=== PATIENT | male | born 1975 | race Two or more races ===

== ENCOUNTER 2017-01-16 19:48 | Emergency (ER) | payer OTHER ==
[2017-01-16] MEDS ORDERED: IBUPROFEN 600 MG TAB PO ONE (20:05)
[2017-01-16 20:06] VITALS: RESP 16
[2017-01-16] MEDS ORDERED: IBUPROFEN 200 MG TAB PO ONE (20:09)
--- NOTE | 2017-01-16 20:41 | EDPHY ---
H & P Time Seen by Provider: 01/16/17 19:59 HPI/ROS: This patient injured his right ankle sliding into 2nd base while playing softball at 6:25 p.m. the night evaluation with an inversion injury. He reports lateral more than medial pain with significant lateral swelling. Pain intensity is 5/10. His drove him here by private vehicle for evaluation. He reports inability to bear weight on the injured ankle. He applied ice but has not taken any medications. He reported noticing some crepitance with movement of the ankle after the injury. ROS: Neuro: No numbness or tingling Musculoskeletal: No other injuries from the fall. No foot pain. Cardiovascular: No pallor to the affected ankle. Integumentary: No lacerations abrasions. 5 point ROS is otherwise negative. Past Medical/Surgical History: Otherwise healthy. He does not recall any prior right ankle injury. Smoking Status: Never smoked Physical Exam: Physical Exam Vital signs are normal. General: No acute distress HEENT: Atraumatic. Eyes: Pupils equal and react to light. Extraocular motions are intact. Lungs: No respiratory distress. Cardiac: Brisk capillary refill is intact throughout. Pulses are 2+ and symmetric in the affected extremity. Extremities: Atraumatic normal except for right ankle Right ankle: Patient has significant lateral swelling on the malleolus with associated tenderness. He also has mild tenderness to the inferior aspect of the medial malleolus with minimal swelling. No Achilles tenderness. No foot swelling or tenderness. Ankle laxity is not evaluated due to presence of fracture on radiograph. Skin: No rash or pallor. Neuro: Alert and oriented with no sensorimotor deficits in the affected extremity. Initial differential diagnosis: Ankle sprain, ankle fracture, ankle contusion Constitutional: Initial Vital Signs Temperature (C) 36.7 C 01/16/17 19:50 Heart Rate 70 01/16/17 19:50 Respiratory Rate 16 01/16/17 19:50 Blood Pressure 135/96 H 01/16/17 19:50 O2 Sat (%) 95 01/16/17 19:50 O2 Delivery Mode Room Air Allergies/Adverse Reactions: No Known Allergies Allergy (Unverified 01/16/17 20:06) Home Medications: Medication Instructions Recorded [facility] 01/16/17 MDM/Departure - [facility] Diagnostics: [facility] Ankle x-ray: Small medial chip fracture off the medial malleolus and lateral soft tissue swelling by my interpretation Imaging Results: Imaging Impressions Ankle X-Ray 01/16/17 20:01 Impression: Acute versus subacute tiny chip fractures off the inferior tip of medial malleolus. Imaging: I viewed and interpreted images myself Medications Given: Discontinued Medications Ibuprofen (Motrin) 600 mg PO EDNOW ONE Stop: 01/16/17 20:06 Last Admin: 01/16/17 20:11 Dose: 600 mg ED Course/Re-evaluation: Patient is placed in a walker boot. I counseled regarding his injuries. We also counseled regarding crutch use provided crutches. Discussion: Patient with lateral ankle sprain and small avulsion fracture from the medial malleolus. Radiographically, this could be acute or subacute but given pain and tenderness the site and no recollection of prior injury I suspect this is acute medial malleolus avulsion fracture. He is neurovascular intact without any other concerning findings. He will follow up with Dr. Sears-orthopedics - Depart Disposition: Home, Routine, Self-Care Clinical Impression: Medial malleolar fracture Qualifiers: Encounter type: initial encounter Fracture type: closed Fracture alignment: nondisplaced Laterality: right Qualified Code(s): S82.54XA - Nondisplaced fracture of medial malleolus of right tibia, initial encounter for closed fracture Ankle sprain Qualifiers: Encounter type: initial encounter Involved ligament of ankle: tibiofibular ligament Laterality: right Qualified Code(s): S93.431A - Sprain of tibiofibular ligament of right ankle, initial encounter Condition: Good Instructions: Ankle Fracture (ED), Ankle Sprain (ED), Crutch Instructions (ED) Additional Instructions: Diagnosis: Medial malleolus avulsion fracture 2. Lateral ankle sprain Plan: Elevate ankle unable Walker boot whenever your up about Crutches with light touch down weight-bearing until he see the orthopedic doctor Ibuprofen Tylenol for pain control Call orthopedic doctor tomorrow to arrange follow-up appointment for sometime within the next 3-7 days Return for unbearable pain, numbness or other concerns. Referrals: NONE *PRIMARY CARE P,. [Primary Care Provider] - As per Instructions Rahat Sears MD [Medical Doctor] - As per Instructions
[2017-01-16 21:07] VITALS: BP 118/79; PULSE 61; TEMP 98.4; O2SAT 96
== END 2017-01-16 21:05 | disposition home or self-care (01) ==
LOC: CED 19:48
DX: S82.54XA Nondisplaced fracture of medial malleolus of right tibia, initial encounter for closed fracture (principal); S93.431A Sprain of tibiofibular ligament of right ankle, initial encounter; X58.XXXA Exposure to other specified factors, initial encounter; Y99.8 Other external cause status; Y93.64 Activity, baseball
CPT/HCPCS: 73610-PO; L4386